=== PATIENT | male | born 1995 | race Two or more races ===

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

== ENCOUNTER 2018-01-14 20:57 | Emergency (ER) | payer MEDICAID, OTHER ==
[2018-01-14 21:22] VITALS: BP 111/68
[2018-01-14] MEDS ORDERED: Bacitracin Oint 1 GM U/D Packet TOP ONE (21:52)
[2018-01-14] MEDS ORDERED: Lidocaine 1% 30 ML SDV INJECT ONE (21:52)
[2018-01-14] MEDS ORDERED: Cephalexin 500 MG Cap PO ONE (22:34)
[2018-01-14] MEDS ORDERED: Ibuprofen 600 MG Tab PO ONE (22:34)
--- NOTE | 2018-01-14 22:35 | EDM.PDOC ---
ED HPI GENERAL MEDICAL PROBLEM - General Chief Complaint: Laceration Stated Complaint: CUT TO FINGER Time Seen by Provider: 01/14/18 21:45 Source of Information: Reports: Patient History Limitations: Reports: No Limitations - History of Present Illness INITIAL COMMENTS - FREE TEXT/NARRATIVE: cut right index finger on table saw when board bucked backwards caught finger on blade, Left dominant. No other injury. 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 Psychiatric History: Reports: Depression - Past Surgical History HEENT Surgical History: Reports: Adenoidectomy, Myringotomy w Tube(s), Tonsillectomy Social & Family History - Family History Family Medical History: Noncontributory - Tobacco Use Smoking Status *Q: Current Every Day Smoker Years of Tobacco use: 2 Packs/Tins Daily: 0.5 - Caffeine Use Caffeine Use: Reports: Energy Drinks, Soda, Tea - Recreational Drug Use Recreational Drug Use: No - Living Situation & Occupation Living situation: Reports: with Family ED ROS GENERAL - Review of Systems Review Of Systems: ROS reveals no pertinent complaints other than HPI. ED EXAM, SKIN/RASH Exam: See Below Exam Limited By: No Limitations General Appearance: Alert, Anxious, Mild Distress Eye Exam: Bilateral Eye: EOMI, PERRL Ears: Normal External Exam Nose: Normal Inspection Throat/Mouth: Normal Inspection Head: Atraumatic, Normocephalic Neck: Normal Inspection Cardiovascular: Normal Peripheral Pulses, Regular Rate, Rhythm Extremities: Other (wound distal right index) Neurological: Alert, Oriented Psychiatric: Normal Affect Location, Skin: Upper Extremity, Right (index palm surface fat pad, stellate avulsion 5mmx 3mm) ED SKIN PROCEDURES - Laceration/Wound Repair Right Distal Other Lac/Wound length In cm: -3 Appearance: Subcutaneous Distal NVT: Neuro & Vascular Intact, No Tendon Injury Anesthetic Type: Local Local Anesthesia - Lidocaine (Xylocaine): 1% Plain Skin Prep: Chlorhexidine (Hibiciens), Saline Exploration/Debridement/Repair: Wound Explored Closed with: Sutures # of Sutures: 1 Sterile Dressing Applied: Nurse Tetanus Status Addressed: Yes Complications: No Course - Vital Signs Last Recorded V/S: Last Vital Signs Temp 99.8 F 01/14/18 21:19 Pulse 98 01/14/18 21:19 Resp 16 01/14/18 21:19 BP 111/68 01/14/18 21:19 Pulse Ox 100 01/14/18 21:19 - Orders/Labs/Meds Meds: Medications Discontinued Medications Generic Name Dose Route Start Last Admin Trade Name Ras PRN Reason Stop Dose Admin Bacitracin 1 dose 01/14/18 21:52 01/14/18 21:57 Bacitracin Oint 1 Gm TOP 01/14/18 21:53 1 dose ONETIME ONE Administration Cephalexin 500 mg 01/14/18 22:34 01/14/18 22:42 Keflex PO 01/14/18 22:35 500 mg ONETIME ONE Administration Ibuprofen 600 mg 01/14/18 22:34 01/14/18 22:41 Motrin PO 01/14/18 22:35 600 mg ONETIME ONE Administration Lidocaine HCl 30 ml 01/14/18 21:52 01/14/18 21:57 Xylocaine-Mpf 1% INJECT 01/14/18 21:53 30 ml ONETIME ONE Administration - Radiology Interpretation Free Text/Narrative:: xray negative for fracture Departure - Departure Time of Disposition: 22:30 Disposition: Home, Self-Care 01 Condition: Good Clinical Impression: Laceration of right index finger Qualifiers: Encounter type: initial encounter Damage to nail status: without damage Foreign body presence: without foreign body Qualified Code(s): S61.210A - Laceration without foreign body of right index finger without damage to nail, initial encounter Avulsion of skin of finger Qualifiers: Encounter type: initial encounter Qualified Code(s): S61.209A - Unspecified open wound of unspecified finger without damage to nail, initial encounter - Discharge Information Instructions: Wound Care, Adult Referrals: PCP,Unobtain [Primary Care Provider] - Forms: ED Department Discharge Additional Instructions: dressing change [id number] daily until healed recheck clinic this week suture out one week tylenol or ibuprofen 600mg may alternate every 4 hours as needed for discomfort elevate extremity tonight keep finger dressed and covered while at work/school follow up if swelling redness or drainage keflex 500mg one three times daily for one week
== END 2018-01-14 23:02 | disposition home or self-care (01) ==
LOC: DL.ED 20:57
DX: S61.210A Laceration without foreign body of right index finger without damage to nail, initial encounter (principal); Z88.0 Allergy status to penicillin; F17.210 Nicotine dependence, cigarettes, uncomplicated; W26.9XXA Contact with unspecified sharp object(s), initial encounter
CPT/HCPCS: 12001; 73140; 99283; A9270

== ENCOUNTER 2018-08-26 19:26 | Emergency (ER) | payer MEDICAID, OTHER ==
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
[2018-08-26] MEDS ORDERED: Acetaminophen/HYDROcodone 325-10 MG Tab PO ONE (21:12)
[2018-08-26 21:20] VITALS: BP 143/82
== END 2018-08-26 21:25 | disposition home or self-care (01) ==
LOC: DL.ED 19:26
DX: S60.132A Contusion of left middle finger with damage to nail, initial encounter (principal); W23.0XXA Caught, crushed, jammed, or pinched between moving objects, initial encounter; Z88.0 Allergy status to penicillin; Z79.899 Other long term (current) drug therapy
CPT/HCPCS: 11740; 73140; 99283; A9270

== ENCOUNTER 2018-09-09 16:37 | Emergency (ER) | payer MEDICAID ==
[2018-09-09 17:07] VITALS: BP 112/60
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
== END 2018-09-09 20:23 | disposition home or self-care (01) ==
LOC: DL.ED 16:37
DX: S83.92XA Sprain of unspecified site of left knee, initial encounter (principal); F17.210 Nicotine dependence, cigarettes, uncomplicated; Z79.899 Other long term (current) drug therapy; Z88.0 Allergy status to penicillin; V86.56XA Driver of dirt bike or motor/cross bike injured in nontraffic accident, initial encounter
CPT/HCPCS: 73564-LT; 73590-LT; 99283-25

== ENCOUNTER 2019-05-03 16:02 | Emergency (ER) | payer MEDICAID, OTHER ==
--- NOTE | 2019-05-03 16:12 | EDM.PDOC ---
ED HPI GENERAL MEDICAL PROBLEM - General Chief Complaint: Head Injury Stated Complaint: METAL BEAM HIT HEAD Time Seen by Provider: 05/03/19 16:07 Source of Information: Reports: Patient, RN, RN Notes Reviewed History Limitations: Reports: No Limitations - History of Present Illness INITIAL COMMENTS - FREE TEXT/NARRATIVE: Pt presents to ER by POV with c/o of being hit in the head with a metal beam at work about 2 hours ago. He denies LOC, neck pain, nausea, or vomiting. Pt states he felt stunned and dizzy. He c/o a headache which he rates 5/10. Nothing alleviates or aggravates his pain. Onset: Today Onset Date: 05/03/19 Onset Time: 14:00 Duration: Constant Location: Reports: Head Quality: Reports: Ache Severity: Moderate Improves with: Reports: None Worsens with: Reports: None Associated Symptoms: Reports: No Other Symptoms - Related Data Allergies Allergy/AdvReac Type Severity Reaction Status Date / Time Penicillins Allergy Hives Verified 09/09/18 17:07 Home Meds: Home Meds Methylphenidate HCl [Concerta] 2 tab PO DAILY 01/27/16 [History] Ibuprofen 600 mg PO ASDIRECTED PRN 09/09/18 [History] Past Medical History - Past Health History Medical/Surgical History: Denies Medical/Surgical History HEENT History: Reports: Impaired Vision Other HEENT History: wears glasses Cardiovascular History: Reports: None Respiratory History: Reports: None Gastrointestinal History: Reports: Cholelithiasis, Irritable Bowel Syndrome Genitourinary History: Reports: None Musculoskeletal History: Reports: None Neurological History: Reports: Concussion, Seizure Other Neuro History: grand mal seizure on 06/04/16 from [facility] [place]; has seen neurology since. Psychiatric History: Reports: ADHD Endocrine/Metabolic History: Reports: None Hematologic History: Reports: None Immunologic History: Reports: None Oncologic (Cancer) History: Reports: None Dermatologic History: Reports: None - Infectious Disease History Infectious Disease History: Reports: None - Past Surgical History Head Surgeries/Procedures: Reports: None HEENT Surgical History: Reports: Adenoidectomy, Myringotomy w Tube(s), Tonsillectomy Social & Family History - Family History Family Medical History: Noncontributory - Tobacco Use Smoking Status *Q: Current Every Day Smoker Tobacco Use Within Last Twelve Months: Cigarettes Years of Tobacco use: 6 Packs/Tins Daily: 0.5 - Caffeine Use Caffeine Use: Reports: Energy Drinks - Living Situation & Occupation Living situation: Reports: with Family Occupation: Employed ED ROS GENERAL - Review of Systems Review Of Systems: Comprehensive ROS is negative, except as noted in HPI. ED EXAM, HEAD INJURY - Physical Exam Exam: See Below Exam Limited By: No Limitations General Appearance: Alert, WD/WN, No Apparent Distress Head: Atraumatic, Normocephalic Nexus Criteria: No: Posterior, Midline Cervical Tenderness, Evidence of Intoxication, Altered Level of Consciousness, Focal Neurological Deficit, Painful Distraction Injuries Eyes: Bilateral Eye: EOMI, Normal Inspection, PERRL Ears: Normal External Exam, Normal Canal, Hearing Grossly Normal, Normal TMs. 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 nml As Tested, No Motor/Sensory Deficits, Alert, Normal Mood/Affect, Oriented x 3 Skin: Normal Color, Warm/Dry - [place] Coma Score Best Eye Response (Herbert): (4) Open Spontaneously Best Verbal Response (Herbert): (5) Oriented Best Motor Response ([place]): (6) Obeys Commands Herbert Total: 15 Departure - Departure Time of Disposition: 16:30 Disposition: Home, Self-Care 01 Condition: Good Clinical Impression: Concussion with no loss of consciousness - Discharge Information *PRESCRIPTION DRUG MONITORING PROGRAM REVIEWED*: No *COPY OF PRESCRIPTION DRUG MONITORING REPORT IN PATIENT FLORES: No Instructions: Concussion, Adult, [id number] Forms: ED Department Discharge Additional Instructions: No contact sports or rough activity for 2 weeks. Do not take any medications which may cause drowsiness for the next 3 days. Do not drink alcohol for 2 weeks. May use Tylenol (Acetaminophen) or Ibuprofen (Advil/Motrin) as needed for headaches or pain. Follow directions on label for dosing and precautions. May nap or sleep normally. Follow up in clinic if any further concerns.
== END 2019-05-03 16:36 | disposition home or self-care (01) ==
LOC: DL.ED 16:02
CPT/HCPCS: 99283

== ENCOUNTER 2022-07-04 22:19 | Emergency (ER) | payer MEDICAID ==
[2022-07-04 22:52] VITALS: BP 130/95; PULSE 89
== END 2022-07-05 00:09 | disposition home or self-care (01) ==
LOC: DL.ED 22:19
DX: S06.0X0A Concussion without loss of consciousness, initial encounter (principal); M43.6 Torticollis; M54.50 Low back pain, unspecified; Z72.0 Tobacco use; Z88.0 Allergy status to penicillin; W22.8XXA Striking against or struck by other objects, initial encounter; Y92.513 Shop (commercial) as the place of occurrence of the external cause
CPT/HCPCS: 70450; 72125; 72131; 99283

== ENCOUNTER 2022-12-19 20:29 | Emergency (ER) | payer SELFPAY ==
[2022-12-19] MEDS ORDERED: Ketorolac 30 MG/ML SDV IM ONE (20:50)
[2022-12-19 20:56] LABS: BASOPHILS PERCENT AUTO 0.6 % (0.0-1.0); EOSINOPHILS PERCENT AUTO 4.4 % (1.0-3.0); HEMATOCRIT 44.5 % (40.0-54.0); HEMOGLOBIN 14.7 g/dL (14.0-18.0); LYMPHOCYTES PERCENT AUTO 37.7 % (20.5-50.1); MEAN CORPUSCULAR VOLUME 93.9 fL (80-100); NEUTROPHILS PERCENT AUTO 38.3 % (42.2-75.2); PLATELET COUNT,PLT 131 10^3/uL (150-450); RED BLOOD CELL COUNT 4.74 10^6/uL (4.6-6.2); WHITE BLOOD CELL COUNT,WBC 3.2 10^3/uL (5.0-10.0)
[2022-12-19] MEDS ORDERED: Ketorolac 30 MG/ML SDV IVPUSH ONE (20:56)
[2022-12-19] MEDS: Sodium Chloride 0.9% 10 ML Syringe FLUSH SCH ×2 (20:59→21:00)
[2022-12-19 21:03] VITALS: BP 132/65; PULSE 53
[2022-12-19 21:17] LABS: A/G RATIO 0.9; ALANINE AMINOTRANSFERASE,ALT 22 U/L (16-63); ALBUMIN 3.7 g/dL (3.4-5.0); ALKALINE PHOSPHATASE 82 U/L (46-116); ASPARTATE AMNIOTRANSFERASE,AST 20 U/L (15-37); BILIRUBIN TOTAL 0.2 mg/dL (0.2-1.0); BLOOD UREA NITROGEN,BUN 10 mg/dL (7-18); BUN/CREATININE RATIO 10.9 (No establ ref range); CALCIUM 8.1 mg/dL (8.5-10.1); CARBON DIOXIDE,CO2 28 mmol/L (21-32); CHLORIDE,CL 106 mmol/L (98-107); CREATININE 0.92 mg/dL (0.70-1.30); EST CRCL DRUG DOSING (CG) 130.73 mL/min; GLUCOSE RANDOM 113 mg/dL (70-99); PROTEIN TOTAL,TP 7.7 g/dL (6.4-8.2); SODIUM,NA 143 mmol/L (136-145)
[2022-12-19 21:18] LABS: C-REACTIVE PROTEIN < 0.2 mg/dL (0.0-0.9); ESTIMATED GFR 118 mL/min (>=60)
[2022-12-19] MEDS ORDERED: Take Home: Ondansetron 4 MG Tab.DIS, 5 Tab Pack PO ONE (22:00)
== END 2022-12-19 22:13 | disposition home or self-care (01) ==
LOC: DL.ED 20:29
DX: K52.9 Noninfective gastroenteritis and colitis, unspecified (principal); Z88.0 Allergy status to penicillin
CPT/HCPCS: 36415; 80053; 85025; 86140; 86308; 96374; 99283; 99284-25; J1885; J3490; Q0162

== ENCOUNTER 2023-09-27 20:34 | Emergency (ER) | payer SELFPAY ==
[2023-09-27] MEDS: Ketorolac 30 MG/ML SDV IM ONE (21:19)
[2023-09-27] MEDS: Clindamycin HCl 150 MG Cap PO ONE (21:19)
[2023-09-27] MEDS ORDERED: diphenhydrAMINE 25 MG Tab ONE (21:22)
[2023-09-27] MEDS: diphenhydrAMINE 25 MG Tab PO ONE (21:23)
[2023-09-27 22:08] VITALS: BP 144/83; PULSE 72
== END 2023-09-27 21:55 | disposition home or self-care (01) ==
LOC: DL.ED 20:34
DX: K04.7 Periapical abscess without sinus (principal); F17.210 Nicotine dependence, cigarettes, uncomplicated; Z91.048 Other nonmedicinal substance allergy status; Z88.0 Allergy status to penicillin; Z91.018 Allergy to other foods; Z90.49 Acquired absence of other specified parts of digestive tract
CPT/HCPCS: 96372; 99282; 99283; A9270; J1885

== ENCOUNTER 2023-11-27 21:59 | Emergency (ER) | payer SELFPAY ==
[2023-11-28 00:07] LABS: HEMATOCRIT 44.6 % (40.0-54.0); HEMOGLOBIN 14.8 g/dL (14.0-18.0); MEAN CORPUSCULAR HEMOGLOBIN 32.1 pg (27.0-34.0); MEAN CORPUSCULAR HGB CONC 33.2 g/dL (33.0-35.0); MEAN CORPUSCULAR VOLUME 96.7 fL (80-100); PLATELET COUNT,PLT 185 10^3/uL (150-450); RED BLOOD CELL COUNT 4.61 10^6/uL (4.6-6.2); WHITE BLOOD CELL COUNT,WBC 11.9 10^3/uL (5.0-10.0)
[2023-11-28 00:13] LABS: BASOPHILS PERCENT AUTO 0.6 % (0.0-1.0); LYMPHOCYTES PERCENT AUTO 19.5 % (20.5-50.1); MONOCYTES PERCENT AUTO 9.4 % (2-8); NEUTROPHILS PERCENT AUTO 66.5 % (42.2-75.2)
[2023-11-28 00:28] LABS: A/G RATIO 0.9; ALBUMIN 3.7 g/dL (3.4-5.0); ANION GAP 12.4 mEq/L (7-13); BILIRUBIN TOTAL 0.3 mg/dL (0.2-1.0); BUN/CREATININE RATIO 11.9 (No establ ref range); CALCIUM 9.2 mg/dL (8.5-10.1); CREATININE 1.01 mg/dL (0.70-1.30); EST CRCL DRUG DOSING (CG) 115.76 mL/min; POTASSIUM,K 4.4 mmol/L (3.5-5.1); PROTEIN TOTAL,TP 7.7 g/dL (6.4-8.2)
[2023-11-28 01:01] LABS: EOSINOPHILS PERCENT MAN 3 % (1-3); LYMPHOCYTES PERCENT MAN 25 % (20-50); MONOCYTES PERCENT MAN 10 % (2-8); SEG NEUTROPHILS PERCENT MAN 62 % (42-75)
[2023-11-28] MEDS: Doxycycline Monohydrate 100 MG Cap PO ONE (01:05)
[2023-11-28 01:06] VITALS: BP 126/81; PULSE 72
== END 2023-11-28 01:05 | disposition home or self-care (01) ==
LOC: DL.ED 21:59
DX: J01.80 Other acute sinusitis (principal); B96.89 Other specified bacterial agents as the cause of diseases classified elsewhere; F17.210 Nicotine dependence, cigarettes, uncomplicated; Z88.0 Allergy status to penicillin; Z91.018 Allergy to other foods; Z91.048 Other nonmedicinal substance allergy status
CPT/HCPCS: 36415; 71045; 80053; 85025; 99285; A9270; 99283

== ENCOUNTER 2024-03-07 23:01 | Emergency (ER) | payer SELFPAY ==
[2024-03-08] MEDS: diphenhydrAMINE 50 MG/ML SDV IVPUSH ONE ×2 (00:08→00:17)
[2024-03-08] MEDS: Metoclopramide 10 MG/2 ML SDV IM ONE (00:08)
[2024-03-08] MEDS: Ketorolac 30 MG/ML SDV IVPUSH ONE (00:09)
[2024-03-08] MEDS: Sodium Chloride 0.9% 500 ML IV ONE (00:14)
[2024-03-08 00:43] VITALS: PULSE 52
[2024-03-08 01:12] VITALS: BP 116/80
== END 2024-03-08 01:13 | disposition home or self-care (01) ==
LOC: DL.ED 23:01
DX: G43.909 Migraine, unspecified, not intractable, without status migrainosus (principal); F17.210 Nicotine dependence, cigarettes, uncomplicated; Z86.16 Personal history of COVID-19; Z90.49 Acquired absence of other specified parts of digestive tract; Z88.0 Allergy status to penicillin; Z91.09 Other allergy status, other than to drugs and biological substances; Z91.018 Allergy to other foods
CPT/HCPCS: 96372; 96374; 96375; 99283; J1200; J1885; J2765; J7030

== ENCOUNTER 2024-04-11 18:28 | Emergency (ER) | payer BC ==
[2024-04-11 18:43] VITALS: BP 128/90; PULSE 80
== END 2024-04-11 18:59 | disposition home or self-care (01) ==
LOC: DL.ED 18:28
DX: J18.9 Pneumonia, unspecified organism (principal); F17.210 Nicotine dependence, cigarettes, uncomplicated; Z90.49 Acquired absence of other specified parts of digestive tract; Z88.0 Allergy status to penicillin; Z91.048 Other nonmedicinal substance allergy status; Z91.018 Allergy to other foods
CPT/HCPCS: 99284

== ENCOUNTER 2024-06-02 18:26 | Emergency (ER) | payer SELFPAY ==
[2024-06-02 18:42] VITALS: BP 130/86; PULSE 80
== END 2024-06-02 18:53 | disposition home or self-care (01) ==
LOC: DL.ED 18:26
DX: S49.92XA Unspecified injury of left shoulder and upper arm, initial encounter (principal); S89.92XA Unspecified injury of left lower leg, initial encounter; Z88.0 Allergy status to penicillin; Z91.018 Allergy to other foods; Z91.048 Other nonmedicinal substance allergy status; Z90.49 Acquired absence of other specified parts of digestive tract; W19.XXXA Unspecified fall, initial encounter; Y92.481 Parking lot as the place of occurrence of the external cause
CPT/HCPCS: 99283